=== PATIENT | female | born 1980 | race Two or more races ===

== ENCOUNTER 2023-04-26 20:16 | Emergency (ER) | payer SELFPAY ==
[~2023-04-26] VITALS: Ht 154.9 cm; Wt 75.0 kg
[2023-04-26] MEDS ORDERED: ALBUTEROL SULF 2.5 MG/0.5ML(0.5%) NEB SOLN NEB ONE (21:30)
[2023-04-26] MEDS ORDERED: methylPREDNISolone SOD SUCC 40 MG/ML VL IM ONE (21:30)
[2023-04-26] MEDS ORDERED: IPRATROPIUM BROM 0.5 MG/2.5ML INH SOL NEB ONE (21:30)
[2023-04-26] MEDS ORDERED: PRED20TA2 PO (22:02)
[2023-04-26] MEDS ORDERED: ALBU1.258 IN (22:02)
[2023-04-26] MEDS ORDERED: ALBUAER3 IN (22:02)
[2023-04-26] MEDS ORDERED: AZITTAB PO (22:02)
[2023-04-26] MEDS ORDERED: GUAI100S6 PO (22:02)
[2023-04-26 22:38] VITALS: BP 149/83; PULSE 97; RESP 17; TEMP 98.5; O2SAT 95
== END 2023-04-26 22:40 | disposition home or self-care (01) ==
LOC: ER 20:16
DX: J45.909 Unspecified asthma, uncomplicated (principal); Z76.0 Encounter for issue of repeat prescription
CPT/HCPCS: 71045; 94640; 96372; 99283; J2920; J7644

== ENCOUNTER 2024-03-12 23:12 | Emergency (ER) | payer MEDICAID ==
[~2024-03-12] VITALS: Ht 154.9 cm; Wt 77.4 kg
[~2024-03-12 23:12] MED LIST: ALBU1.258 IN; ALBUAER3 IN; AZITTAB PO; GUAI100S6 PO; PRED20TA2 PO
[2024-03-13] MEDS: ALPRAZolam 0.5 MG TAB PO ONE ×2 (00:30→03:41)
[2024-03-13 00:55] LABS: Basophils # (auto) 0.1 10 ^3/uL (0-0.2); Basophils % (auto) 0.8 % (0.0-2.0); Eosinophils # (auto) 0.1 10 ^3/uL (0-0.8); Eosinophils % (auto) 1.1 % (0.0-7.0); Hematocrit 40.2 % (36.0-46.0); Hemoglobin 13.7 g/dL (12.2-16.2); Lymphocytes # (auto) 1.6 10 ^3/uL (0.4-5.4); Mean Corpuscular Hgb Conc. 34.1 g/dL (32.0-36.0); Monocytes # (auto) 0.5 10 ^3/uL (0-1.3); Monocytes % (auto) 4.5 % (0.0-12.0); Neutrophils # (auto) 7.8 10 ^3/uL (1.6-8.6); Neutrophils % (auto) 77.6 % (37.0-80.0); Nucleated Red Blood Cells % 0.1 %; Red Blood Cells 4.57 10^6/uL (4.0-5.20); Red Cell Distribution Width 12.7 % (11.8-14.3)
[2024-03-13 00:58] LABS: Chloride 106 mmol/L (98-107); Sodium 139 mmol/L (136-145)
[2024-03-13 00:59] LABS: Anion Gap 9 (5-15); Calcium 9.8 mg/dL (8.7-10.4); Carbon Dioxide 24 mmol/L (20-30)
[2024-03-13 01:04] LABS: BUN/Creatinine Ratio 9.3 (10.0-20.0); Blood Urea Nitrogen 7 mg/dL (9-23); Glucose 114 mg/dL (74-106)
[2024-03-13 03:20] VITALS: PULSE 107; RESP 18; O2SAT 98
[2024-03-13] MEDS ORDERED: ALPR0.5T PO (03:40)
[2024-03-13 04:10] VITALS: BP 137/81; PULSE 85; RESP 12; TEMP 97.6; O2SAT 97
== END 2024-03-13 04:12 | disposition home or self-care (01) ==
LOC: ER 23:12
DX: R03.0 Elevated blood-pressure reading, without diagnosis of hypertension (principal); R10.9 Unspecified abdominal pain; J45.909 Unspecified asthma, uncomplicated
CPT/HCPCS: 36415; 71045; 80048; 83880; 84484; 85025; 85379

== ENCOUNTER 2024-12-16 19:18 | Emergency (ER) | payer MEDICAID ==
[~2024-12-16 19:18] MED LIST changes: +ALPR0.5T PO
== END 2024-12-16 20:51 | disposition left against medical advice (07) ==
LOC: ER 19:18
DX: R10.84 Generalized abdominal pain (principal); Z53.21 Procedure and treatment not carried out due to patient leaving prior to being seen by health care provider